=== PATIENT | female | born 1985 | race African-American/Black ===

== ENCOUNTER → 2016-11-18 | Outpatient (CLI) | payer OTHER ==
[~2016-11-18] MED LIST: ISOVUE-370 76% 100ML VIAL (Q9967) As Ordered ONE
--- NOTE | 2016-11-18 13:21 | REP ---
Hysterosalpingogram: History: Secondary infertility. No comparison imaging available. Procedure: The endometrium is cannulated and contrast was injected by the referring assistant program director. Fluoroscopic spot films were acquired in a sequence of 10 spot radiographs. 1 minute 3 seconds of fluoroscopy time was utilized. Findings: Endometrial cavity is normally shaped and has a smooth margin. No evidence of synechiae or endometrial mass. There is filling of the isthmic and ampullary segments of both fallopian tubes. No peritoneal spillage is noted on the right. There is a fairly large elongate left-sided hydrosalpinx which is opacified and eventually, this produced peritoneal spillage. No abnormality is noted after balloon deflation. Impression: Abnormal hysterosalpingogram with a fairly large hydrosalpinx on the left ultimately showing peritoneal spillage. Patency could not be confirmed on the right. Signed by Nathan Loredo MD 11/18/2016 01:57 P
== END ==
LOC: M RADPRO 12:19
PROVIDERS: ATTEND Obstetrics & Gynecology
DX: N97.9 Female infertility, unspecified (principal); N70.11 Chronic salpingitis
CPT/HCPCS: 58340; 74740; Q9967

== ENCOUNTER → 2018-02-03 | Outpatient (CLI) | payer OTHER ==
[2018-02-03 14:32] LABS: CONTROL LINE HCG INT CTR LINE PRESENT; HCG, SERUM QUALITATIVE NEGATIVE (NEGATIVE)
== END ==
LOC: M RADPRO 12:33
DX: N83.292 Other ovarian cyst, left side (principal); N97.9 Female infertility, unspecified
CPT/HCPCS: 58340